=== PATIENT | male | born 1955 | race Caucasian/White ===

== ENCOUNTER 2016-08-22 19:00 | Outpatient (CLI) | payer OTHER ==
--- NOTE | 2016-08-23 07:02 | XRAY Report ---
EXAM: LUMBOSACRAL SPINE RADIOGRAPHY EXAM DATE: 08/22/2016 08:57 PM. CLINICAL HISTORY: Back pain COMPARISONS: None. TECHNIQUE: 3 views. FINDINGS: Alignment: Moderate levoscoliosis centered at L3. Bones: Five [id number] lumbar vertebral bodies are present. No fractures or bone lesions. Degenerative changes: Moderate to severe degenerative disk disease at L3-L4. Mild diffuse degenerativ e disk disease elsewhere. Advanced lower lumbar facet DJD. Soft Tissues: Normal. The visualized bowel gas pattern is normal. IMPRESSION: Moderate degenerative changes, worst at L3-L4 are accentuated by levoscoliosis. [facility] Referring Provider Line: [phone] SITE ID: [id number]
--- NOTE | 2016-08-23 09:39 | XRAY Report ---
EXAM: BILATERALLY SHOULDER RADIOGRAPHY EXAM DATE: 08/22/2016 08:57 PM. CLINICAL HISTORY: Bilateral shoulder pain, psoriatic arthritis. COMPARISON: None. TECHNIQUE: 3 views on each side. FINDINGS: There is moderate to severe cranial migration of the right humeral head with subchondral cy stic and sclerotic changes in the right humeral head and chronic fragmented appearance of the right a cromion with severely diminished acromiohumeral space. The right glenohumeral space demonstrates mild subchondral sclerotic reaction, and the right AC joint is within normal limits. The left glenohumeral space and the left AC joint are within normal limits. No acute fracture, bony erosive process or dislocation. The visualized chest is within normal limits. IMPRESSION: 1. Moderate to severe cranial migration of the right humeral head with chronic fragmented appearance of the right acromion and severe diminishment of the right acromiohumeral space, indicating chronic r ight rotator cuff impingement. 2. Negative left shoulder x-ray. [facility] Referring Provider Line: [phone] SITE ID: [id number]
== END 2016-08-22 19:01 | disposition home or self-care (01) ==
LOC: DI 19:00
PROVIDERS: ATTEND Physician Assistant Medical
DX: M51.36 Other intervertebral disc degeneration, lumbar region (principal); M47.896 Other spondylosis, lumbar region; M75.41 Impingement syndrome of right shoulder
CPT/HCPCS: 72100

== ENCOUNTER 2017-09-06 16:13 | Outpatient (CLI) | payer OTHER ==
--- NOTE | 2017-09-07 08:13 | XRAY Report ---
Procedure Date: 09/06/2017 Accession Number: [id number] / [id number] Procedure: XR - Chest 2 View X-Ray CPT Code: 49525 FULL RESULT: EXAM: Chest 2 View X-Ray DATE: 09/06/2017 4:48 PM CLINICAL HISTORY: COUGH, COPD COMPARISON: 06/30/2015 TECHNIQUE: 2 views. FINDINGS: Lungs/Pleura: The lungs remain hyperinflated, compatible with COPD. No focal consolidation, effusion, or pneumothorax. Mediastinum: Heart and mediastinal contours are unremarkable. Other: None. IMPRESSION: Stable COPD. No evidence of acute cardiopulmonary disease. [facility]
== END 2017-09-06 16:14 | disposition home or self-care (01) ==
LOC: DI 16:13
PROVIDERS: ATTEND Physician Assistant Medical
DX: J44.9 Chronic obstructive pulmonary disease, unspecified (principal)
CPT/HCPCS: 71046

== ENCOUNTER 2018-11-30 06:08 | Outpatient (CLI) | payer MEDICARE ==
--- NOTE | 2018-11-30 10:26 | XRAY Report ---
Reason: COPD Procedure Date: 11/30/2018 Accession Number: [id number] / [id number] Procedure: XR - Chest 2 View X-Ray CPT Code: 20140 FULL RESULT: EXAM: CHEST RADIOGRAPHY EXAM DATE: 11/30/2018 06:16 AM. CLINICAL HISTORY: COPD. Follow up COMPARISON: CHEST 2 VIEW 09/06/2017 4:35 PM. TECHNIQUE: 2 views. FINDINGS: Lungs/Pleura: No focal opacities evident. No pleural effusion. No pneumothorax. Normal volumes. Stable hyperinflation. Mediastinum: Heart size upper limits of normal and stable. Other: None. IMPRESSION: Stable hyperinflation. No acute lung processes detected. [facility]
== END 2018-11-30 06:09 | disposition home or self-care (01) ==
LOC: DI 06:08
PROVIDERS: ATTEND Internal Medicine
DX: J44.9 Chronic obstructive pulmonary disease, unspecified (principal)
CPT/HCPCS: 71046

== ENCOUNTER 2019-02-09 08:28 | Outpatient (CLI) | payer MEDICARE, OTHER | END 2019-02-09 08:29 | disposition home or self-care (01) | LOC: RT 08:28 | PROVIDERS: ATTEND Surgery | DX: Z01.810 Encounter for preprocedural cardiovascular examination (principal); K40.90 Unilateral inguinal hernia, without obstruction or gangrene, not specified as recurrent | CPT/HCPCS: 93005 ==

== ENCOUNTER 2019-02-17 08:22 | Day surgery (SDC) | payer MEDICARE, OTHER ==
[2019-02-17] MEDS ORDERED: LACTATED RINGERS 1,000 ML IV ONE ×2 (08:33→09:59)
[2019-02-17] MEDS ORDERED: ENOXAPARIN 30 MG/0.3 ML SYRINGE SUBQ ONE (08:43)
[2019-02-17] MEDS ORDERED: CEFAZOLIN SODIUM IN 0.9 % NACL 2 GM/100 ML BAG IV ONE (08:43)
[2019-02-17] MEDS ORDERED: BUPIVACAINE 0.5% PF 30 ML VIAL ONE (09:07)
--- NOTE | 2019-02-17 09:18 | ANESTHESIA ---
Pre-Anesthesia VS, & Labs - Diagnosis L inguinal hernia - Procedure L inguinal hernia repair Vital Signs: Temp Pulse Resp BP Pulse Ox 37.0 C 65 16 136/61 H 98 02/17/19 08:37 02/17/19 08:37 02/17/19 08:37 02/17/19 08:37 02/17/19 08:37 Height 5 ft 9 in Weight (kg) 73.6 kg Body Mass Index 21.5 - NPO >8 hours Home Medications and Allergies Home Medications: Ambulatory Orders ALPRAZolam [Alprazolam] 1 mg PO TID PRN 02/08/19 Budesonide/Formoterol Fumarate [Symbicort 160-4.5 Mcg Inhaler] 2 puffs IH BID 02/08/19 Ipratropium/Albuterol [Duoneb] 3 ml INH Q6H PRN 02/08/19 Naproxen Sodium [Aleve] 220 mg PO BID PRN 02/08/19 traMADol [Ultram] 1 - 2 tab PO DAILY PRN 02/08/19 Lisinopril 20 mg PO DAILY 05/09/13 Albuterol [Ventolin Hfa] 2 puffs INH Q4H PRN 07/05/14 ALPRAZolam [Alprazolam] 1 mg PO TID PRN 02/08/19 Budesonide/Formoterol Fumarate [Symbicort 160-4.5 Mcg Inhaler] 2 puffs IH BID 02/08/19 Ipratropium/Albuterol [Duoneb] 3 ml INH Q6H PRN 02/08/19 Naproxen Sodium [Aleve] 220 mg PO BID PRN 02/08/19 traMADol [Ultram] 1 - 2 tab PO DAILY PRN 02/08/19 Allergies/Adverse Reactions: Allergies Allergy/AdvReac Type Severity Reaction Status Date / Time No Known Drug Allergies Allergy Verified 06/29/15 23:33 Anes History & Medical History - Anesthetic History Anesthesia Complications: reports: No previous complications Family history of Anesthesia Complications: Denies Family history of Malignant Hyperthermia: Denies - Medical History Cardiovascular: reports: Hypertension Pulmonary: reports: Asthma, COPD, Pneumonia, Other (recent Abx for URI that delayed original surgery for 02/10/19. lungs clear t/o, cough no longer productive) Gastrointestinal: reports: None Urinary: reports: None Musculoskeletal: reports: Osteoarthritis Endocrine/Autoimmune: reports: None Skin: reports: Eczema, Other Smoking Status: Never smoker Psychosocial: reports: No issues indicated - Surgical History Dermatologic: Other Exam General: Alert, Oriented x3, Cooperative Dental: WNL Mouth Openin Fingerbreadth Neck Mobility: Normal Mallampati classification: II Thyromental Distance: 4-6 cm Respiratory: Lungs clear, Normal breath sounds, No respiratory distress Cardiovascular: Regular rate Neurological: Normal speech Mental/Cognitive Status: Alert/Oriented X3, Normal for patient Cognitive Status: Within normal limits Plan Anesthesia Type: General Consent for Procedure(s) Verified and Reviewed: Yes Code Status: Attempt Resuscitation ASA classification: 2-Mild systemic disease Is this case an emergency?: No
[2019-02-17] MEDS ORDERED: ceFAZolin 1 GM VIAL ONE (09:52)
[2019-02-17] MEDS ORDERED: BUPIVACAINE 0.5% PF 10 ML VIAL IM ONE ×2 (09:57)
--- NOTE | 2019-02-17 11:14 | IMMEDIATE POSTOPERATIVE NOTE ---
Immediate Postoperative Note - Procedure Note Procedure Date: 02/17/19 Pre-Op Diagnosis: LIH Procedure: 1. LIH repair w/implantation of mesh plug and patch 2. Exc cord lipoma Post-Op Diagnosis: Same Primary Surgeon: Ale Golf Ball Inspector: Frank Anesthesia Type: General ET tube, Local Findings: LIH Indirect w/hernia sac Complications: No complications Estimated Blood Loss (in cc): 3
[2019-02-17] MEDS ORDERED: ONDANSETRON 4 MG/2 ML VIAL IVP PRN (11:15)
[2019-02-17] MEDS ORDERED: ACETAMINOPHEN 325 MG TABLET PO PRN (11:15)
[2019-02-17] MEDS ORDERED: oxyCODONE 5 MG TABLET PO PRN (11:15)
[2019-02-17] MEDS ORDERED: IBUPROFEN 600 MG TABLET PO PRN (11:15)
[2019-02-17] MEDS: HYDROmorphone 1 MG/ML CARPUJECT ONE ×2 (11:29→11:40)
[2019-02-17] MEDS ORDERED: ACETAMINOPHEN 325 MG TABLET PO ONE (12:02)
[2019-02-17] MEDS ORDERED: IBUPROFEN 600 MG TABLET PO ONE (12:02)
[2019-02-17] MEDS ORDERED: oxyCODONE 5 MG TABLET ONE (12:03)
--- NOTE | 2019-02-17 12:10 | OPERATIVE REPORT ---
DATE OF SERVICE: 02/17/2019 Physician: Shady Aguilera DO PREOPERATIVE DIAGNOSIS: Left inguinal hernia. POSTOPERATIVE DIAGNOSIS: Left indirect inguinal hernia with hernia sac and cord lipoma. PROCEDURE PERFORMED: 1. Left inguinal hernia repair with implantation of mesh plug and patch. 2. Excision of left inguinal hernia cord lipoma. SURGEON: Shady Aguilera DO. HEALTH CARE LIAISON: Dr. Marie. [facility] [employer] [facility] DIRECTOR: Trey Rojas CRNA. TYPE OF ANESTHESIA: General endotracheal tube with local assist. ESTIMATED BLOOD LOSS: 3 mL FINDINGS: The patient had a large cord lipoma requiring dissection and excision. The hernia sac was also moderately large. COMPLICATIONS: None. CONDITION: Stable upon transport to recovery. HISTORY: The patient is a 63-year-old white male with a left inguinal hernia for some time that is u ncomfortable for him. There is no history of incarceration or strangulation of this hernia. DESCRIPTION OF PROCEDURE: The patient was taken to the operating room and under the above-mentioned anesthetic, prepped and draped in the usual sterile manner. He was given a local anesthetic followin g induction of general anesthetic. An incision made between the left anterior superior iliac spine a nd the left pubic tubercle and carried down through the skin and subcutaneous tissues until the exter nal oblique aponeurosis was identified. The aponeurosis was then incised through the external ring a nd the underlying ilioinguinal nerve identified, dissected and sacrificed. Both ends were electrocoa gulated. The underlying cremaster muscle was dissected and mobilized and likewise excised. Subseque ntly, the spermatic cord was elevated and encircled with a Adele drain. The large cord lipoma was carefully dissected down to the internal ring where it was clamped, divided, and suture ligated. Sub sequently, the hernia sac was identified and carefully dissected down to the internal ring, where it was then twisted down to its base, suture ligated with 2-0 silk and the excess sac trimmed. Subseque ntly, the sac was then placed into the internal ring. Following that, a mesh plug that had been soak ing in Ancef solution was placed to further secure the remnant of the cord lipoma and hernia sac in t he internal ring. A keyhole onlay mesh was then implanted with the tip at José Miguel's ligament, and the n laterally to the shelving portion of Poupart's ligament, and the medial edge of the mesh to the int ernal oblique fascia, all with inverted interrupted horizontal mattress sutures of 2-0 Prolene. Even tually, the cord was placed within the keyhole and the ends of the mesh tacked together and then sutu red to the floor of the inguinal canal. Following a reported correct sponge and needle count, the pa tient was prepared for closure. The external inguinal aponeurosis was then reapproximated with a run rakan 2-0 PDS and Latonia's fascia was approximated with inverted interrupted 3-0 Vicryl and skin jonah ns approximated with a running 4-0 Vicryl. Dermabond was applied over that. The patient transported to recovery in stable condition. TD: 02/17/2019 11:24
[2019-02-17 12:50] VITALS: BP 131/67
== END 2019-02-17 08:23 | disposition home or self-care (01) ==
LOC: SDS 08:22
PROVIDERS: ATTEND Surgery
PROC: 0YU60JZ Supplement Left Inguinal Region with Synthetic Substitute, Open Approach (ICD-10-PCS; principal; 2019-02-17 09:30)
DX: K40.90 Unilateral inguinal hernia, without obstruction or gangrene, not specified as recurrent (principal); D17.6 Benign lipomatous neoplasm of spermatic cord; I10 Essential (primary) hypertension; J44.9 Chronic obstructive pulmonary disease, unspecified; Z79.899 Other long term (current) drug therapy; Z79.51 Long term (current) use of inhaled steroids; Z87.891 Personal history of nicotine dependence
CPT/HCPCS: 49505; A9270; C1781; J0690; J1170; J1650; J7120

== ENCOUNTER 2019-02-19 09:40 | Emergency (ER) | payer MEDICARE, OTHER ==
[2019-02-19 09:49] VITALS: BP 149/86
[2019-02-19] MEDS ORDERED: DEXAMETHASONE 10 MG/ML VIAL PO STA (10:29)
[2019-02-19] MEDS ORDERED: CHERRY SYRUP 10 ML UDC PO ONE (10:29)
--- NOTE | 2019-02-19 10:31 | ED Physician Documentation ---
PD HPI URI - Stated complaint Stated Complaint: L EYE SWELLING - Chief complaint Chief Complaint: Heent - History obtained from History obtained from: Patient - History of Present Illness Timing - onset: How many days ago (3) Timing duration: Days (3) Timing details: Gradual onset, Still present Associated symptoms: Nasal congestion, Rhinorrhea, Swollen nodes, Productive cough, Dyspnea, Other (swelling to the left side of the face) Improves by: MDI/nebulizer Worsened by: Activity Similar symptoms before: Diagnosis (COPD and bronchitis) Recently seen: Surgery - Additional information Additional information: 63-year-old male with a history of COPD had surgery on his left inguinal hernia 3 days ago and he has developed a cough and congestion and this morning he has swelling under his left eye and over his left cheek. He is developed some difficulty with breathing and feels that he needs some prednisone. Review of Systems Constitutional: denies: Fever Eyes: reports: Irritation. denies: Decreased vision Ears: denies: Ear pain Nose: reports: Rhinorrhea / runny nose, Congestion Throat: denies: Sore throat Cardiac: denies: Chest pain / pressure, Palpitations Respiratory: reports: Dyspnea, Cough, Wheezing PD PAST MEDICAL HISTORY - Past Medical History Cardiovascular: Hypertension Respiratory: Asthma, COPD, Pneumonia, Other Endocrine/Autoimmune: None GI: None : None HEENT: Chronic vision loss Psych: Anxiety Musculoskeletal: Osteoarthritis Derm: Eczema, Other - Past Surgical History Past Surgical History: No Derm: Other - Present Medications Home Medications: Ambulatory Orders Medication Instructions Recorded Confirmed Lisinopril 20 mg PO DAILY 05/09/13 02/17/19 Albuterol [Ventolin Hfa] 2 puffs INH Q4H PRN 07/05/14 02/08/19 ALPRAZolam [Alprazolam] 1 mg PO TID PRN 02/08/19 02/17/19 Budesonide/Formoterol Fumarate 2 puffs IH BID 02/08/19 02/17/19 [Symbicort 160-4.5 Mcg Inhaler] Ipratropium/Albuterol [Duoneb] 3 ml INH Q6H PRN 02/08/19 02/08/19 Naproxen Sodium [Aleve] 220 mg PO BID PRN 02/08/19 02/17/19 traMADol [Ultram] 1 - 2 tab PO DAILY PRN 02/08/19 02/17/19 Amox/Clav 875/125 [Augmentin] 1 each PO Q12H #20 tablet 02/19/19 Oxycodone HCl/Acetaminophen 02/19/19 [Oxycodone-Acetaminophen 5-325] predniSONE [Deltasone] 10 mg PO ONCE #26 tablet 02/19/19 - Allergies Allergies/Adverse Reactions: Allergies Allergy/AdvReac Type Severity Reaction Status Date / Time No Known Drug Allergies Allergy Verified 02/19/19 09:49 - Social History Does the pt smoke?: No Smoking Status: Never smoker Does the pt drink ETOH?: Yes Does the pt have substance abuse?: No - Immunizations Immunizations are current?: Yes - POLST Patient has POLST: No PD ED PE NORMAL - Vitals Vital signs reviewed: Yes (hypertensive) - General General: Alert and oriented X 3, No acute distress, Well developed/nourished - HEENT HEENT: Atraumatic, PERRL, EOMI, Pharynx benign, Other (Both TM's are inflamed the left is much worse than the right. There is mild inflamation under the left eye over the cheek without significant erythema. ) - Neck Neck: Supple, no meningeal sign, No bony TTP - Cardiac Cardiac: RRR, No murmur - Respiratory Respiratory: No respiratory distress, Other (wheezes and rhonchi scattered ) - Abdomen Abdomen: Soft, Non tender, Other (There is a healing surgical site the left inguinal area and this appears to be healing well without significant inflamation. There is ecchymosis to the upper thigh. ) - Back Back: No CVA TTP, No spinal TTP - Derm Derm: Normal color, Warm and dry, No rash - Extremities Extremities: No deformity, No edema - Neuro Neuro: Alert and oriented X 3, punch operator 2-12 intact, No motor deficit, No sensory deficit, Normal speech Eye Opening: Spontaneous Motor: Obeys Commands Verbal: Oriented GCS Score: 15 - Psych Psych: Normal mood, Normal affect Results - Vitals Vitals: Vital Signs - 24 hr 02/19/19 09:46 Temperature 36.9 C Heart Rate 93 Respiratory 16 Rate Blood Pressure 149/86 H O2 Saturation 97 Oxygen O2 Source Room air PD MEDICAL DECISION MAKING - ED course Complexity details: reviewed old records, reviewed results, re-evaluated patient, considered differential, d/w patient ED course: 63-year-old male with a history of COPD has developed a cough and congestion has otitis on examination. He will need a course of prednisone and antibiotic. He is complaining of some swelling under his left eye and over his left cheek and I suspect this may be part of a sinus infection. The swelling is now reduced from what it was at its height. He is administered dexamethasone 10 mg orally here in the emergency department and he refuses DuoNeb treatment stating he has this at home and would like to go home. We will start him on some Augmentin as well.His inguinal hernia appears to be healing well without signs of inflammation Departure - Departure Disposition: Home, Self Care Clinical Impression: Asthma exacerbation Qualifiers: Asthma severity: moderate Asthma persistence: persistent Qualified Code(s): J45.41 - Moderate persistent asthma with (acute) exacerbation Otitis media Qualifiers: Otitis media type: suppurative Chronicity: acute Laterality: bilateral Recurrence: non-recurrent Spontaneous tympanic membrane rupture: without spontaneous rupture Qualified Code(s): H66.003 - Acute suppurative otitis media without spontaneous rupture of ear drum, bilateral Condition: Stable Instructions: ED Otitis Media Acute Adult, ED Reactive Airway Disease Follow-Up: Cande Calderon MD [Primary Care Provider] - Prescriptions: Amox/Clav 875/125 [Augmentin] 1 each PO Q12H #20 tablet predniSONE [Deltasone] 10 mg PO ONCE #26 tablet
[2019-02-19] MEDS ORDERED: AMOX/CLAV 875 MG/125 MG TABLET PO STA (10:49)
== END 2019-02-19 11:02 | disposition home or self-care (01) ==
LOC: ED 09:40
DX: J45.41 Moderate persistent asthma with (acute) exacerbation (principal); J44.9 Chronic obstructive pulmonary disease, unspecified; H66.003 Acute suppurative otitis media without spontaneous rupture of ear drum, bilateral; I10 Essential (primary) hypertension; Z98.890 Other specified postprocedural states
CPT/HCPCS: 99282; 99284; A9270

== ENCOUNTER 2020-05-03 17:45 | Emergency (ER) | payer MEDICARE ==
[2020-05-03] MEDS ORDERED: predniSONE 20 MG TABLET PO STA (18:12)
[2020-05-03] MEDS ORDERED: AMOX/CLAV 875 MG/125 MG TABLET PO STA (18:12)
--- NOTE | 2020-05-03 18:16 | ED Physician Documentation ---
PD HPI DYSPNEA - Stated complaint Stated Complaint: SOA - Chief complaint Chief Complaint: Resp - History obtained from History obtained from: Patient - Additional information Additional information: 64-year-old gentleman with COPD presents having been mildly congested for the last week and a half, but more shortness of breath today with moderate cough. He denies fevers. He used his nebulizer prior to arrival with some help, then called his physician expecting a prescription for steroids, however his usual physician is out of town and the on-call physician told him to come to the emergency department. He denies chest pain, pedal edema. He also took 3 ephedrine and 3 Xanax prior to arrival feeling panicky but also short of breath. Review of Systems Constitutional: denies: Fever, Chills Ears: denies: Loss of hearing, Ear pain Nose: reports: Rhinorrhea / runny nose, Congestion Throat: denies: Sore throat Cardiac: denies: Chest pain / pressure, Palpitations Respiratory: reports: Dyspnea PD PAST MEDICAL HISTORY - Past Medical History Cardiovascular: Hypertension Respiratory: Asthma, COPD, Pneumonia, Other Endocrine/Autoimmune: None GI: None : None HEENT: Chronic vision loss Psych: Anxiety Musculoskeletal: Osteoarthritis Derm: Eczema, Other - Past Surgical History Past Surgical History: No Derm: Other - Present Medications Home Medications: Ambulatory Orders Medication Instructions Recorded Confirmed Lisinopril 20 mg PO DAILY 05/09/13 02/17/19 Albuterol [Ventolin Hfa] 2 puffs INH Q4H PRN 07/05/14 02/08/19 ALPRAZolam [Alprazolam] 1 mg PO TID PRN 02/08/19 02/17/19 Budesonide/Formoterol Fumarate 2 puffs IH BID 02/08/19 02/17/19 [Symbicort 160-4.5 Mcg Inhaler] Ipratropium/Albuterol [Duoneb] 3 ml INH Q6H PRN 02/08/19 02/08/19 Naproxen Sodium [Aleve] 220 mg PO BID PRN 02/08/19 02/17/19 traMADol [Ultram] 1 - 2 tab PO DAILY PRN 02/08/19 02/17/19 Amox/Clav 875/125 [Augmentin] 1 each PO Q12H #20 tablet 02/19/19 Oxycodone HCl/Acetaminophen 02/19/19 [Oxycodone-Acetaminophen 5-325] predniSONE [Deltasone] 10 mg PO ONCE #26 tablet 02/19/19 Amox/Clav 875/125 [Augmentin] 1 each PO Q12H #20 tab 05/03/20 predniSONE [Deltasone] 20 mg PO [id number] #21 tab 05/03/20 - Allergies Allergies/Adverse Reactions: Allergies Allergy/AdvReac Type Severity Reaction Status Date / Time No Known Drug Allergies Allergy Verified 05/03/20 17:51 - Social History Does the pt smoke?: No Smoking Status: Never smoker Does the pt drink ETOH?: Yes Does the pt have substance abuse?: No - Immunizations Immunizations are current?: Yes - POLST Patient has POLST: No PD ED PE NORMAL - Vitals Vital signs reviewed: Yes - General General: Alert and oriented X 3, Other (He is hyperanimated and talking quite fast, there is no evidence of respiratory distress. He is tachycardic.) - Cardiac Cardiac: Other (tachyCardiac but regular without murmur) - Respiratory Respiratory: Other (Moderately diminished, mild expiratory wheezes.) - Abdomen Abdomen: Non tender - Back Back: No CVA TTP, No spinal TTP - Derm Derm: Normal color, Warm and dry, No rash - Extremities Extremities: No edema, No calf tenderness / cord - Neuro Neuro: Alert and oriented X 3, Normal speech Results - Vitals Vitals: Vital Signs - 24 hr 05/03/20 05/03/20 17:48 18:20 Temperature 36.4 C L Heart Rate 123 H 119 H Respiratory 26 H 18 Rate Blood Pressure 144/101 H 136/90 H O2 Saturation 92 98 Oxygen O2 Source Room air PD MEDICAL DECISION MAKING - ED course ED course: 64-year-old gentleman COPD presents with shortness of breath. His tachycardia is significant but given that he is hyper animated and took 3 ephedrine prior to arrival suspect it was from that. That said because of the tachycardia I recommended labs to screen for ACS and PE which he refuses. He just wants a prescription for antibiotics and steroids. Departure - Departure Disposition: Home, Self Care Clinical Impression: Moderate COPD (chronic obstructive pulmonary disease) Condition: Good Record reviewed to determine appropriate education?: Yes Instructions: COPD Dc Prescriptions: Amox/Clav 875/125 [Augmentin] 1 each PO Q12H #20 tab predniSONE [Deltasone] 20 mg PO [id number] #21 tab Comments: Call your doctor to arrange a follow-up appointment, make the next available appointment. In the interim, return anytime if worse or if new symptoms develop. Discharge Date/Time: 05/03/20 18:30
[2020-05-03 18:30] VITALS: BP 136/90
== END 2020-05-03 18:30 | disposition home or self-care (01) ==
LOC: ED 17:45
DX: J44.9 Chronic obstructive pulmonary disease, unspecified (principal); R00.0 Tachycardia, unspecified
CPT/HCPCS: 99282; 99284; A9270; J7512

== ENCOUNTER 2020-09-16 10:21 | Outpatient (CLI) | payer MEDICARE ==
[2020-09-23 09:21] VITALS: BP 140/70
--- NOTE | 2020-09-23 09:21 | SLEEP CARE CONSULTATION ---
Information from patient questionnaire entered by Seema Bowers. I have reviewed and concur with the information entered by Seema Bowers. This document represents the service I personally performed and the decisions made by me, Lalit Spence MD, [facility]. History of Present Illness Service Date and Time: 09/16/2020 1021 Reason for Visit: New patient Chief Complaint: reports: Unrefreshed sleep, Snoring, Observed pauses in breathing Date of Onset: unsure Usual bedtime: varies Time it takes to fall asleep: not long Snores at night: Yes Observed to quit breathing while asleep: Yes Sleeps alone due to snoring: Yes (sometimes) Number of times waking at night: unsure Reasons for waking at night: reports: Bathroom Toss, Turn, or Twitch while sleeping: No Recalls having dreams: Yes Usually gets out of bed at: varies Feels refreshed in the morning: No Morning headache: No Sleepy or fatigued during the day: Yes (sometimes) Ever fallen asleep while driving: No Takes day naps: No Dreams during day naps: No Prior sleep studies: No Additional HPI information: I had the pleasure of seeing Mr. Rivera today regarding the possibility of him having a sleep disorder. As you know, he is a 65 year old gentleman who complains of loud snore and his has seen him quit breathing. He occasionally takes Xanax which makes his snores worse. He feels tired all day. However, his [place] Sleepiness Scale score is only 1 out of 24. He does not wake up refreshed in the morning. No morning headaches. He has hypertension. - Parasomnia Symptoms Ever been unable to move upon waking from sleep: No Walks in sleep: No Talks in sleep: No Ever acted out dreams in sleep: No Ever felt weak in the knees when startled or emotional: No Bothered by creepy, crawly, restless sensations in legs: No Problems with memory or concentration: No Subjective Initial [place] Sleepiness Scale score: 1 (in 2020) Past Medical History Past Medical History: reports: Hypertension, Anxiety, Asthma Social History The patient's occupation is a Retired. Patient is and lives in [place]. Have you smoked in the past 12 months: No Alcohol use: No Caffeine use: Yes Caffeine amount and frequency: 3 cups of coffee Family History Family history of sleep disordered breathing: Yes Family Hx Sleep Apnea: Father: Snoring Allergies and Home Medications Drug allergies reviewed: Yes Home medication list reviewed: Yes Review of Systems Cardiovascular: reports: high blood pressure (controlled with Lisinopril) Respiratory: denies: shortness of breath, wheeze, sputum production, chronic cough, other Gastrointestinal: denies: heartburn, difficulty swallowing, nausea, vomitting, diarrhea, abdominal pain, other Urinary: denies: incontinence, frequency, urgency, impotence, other Neurological: denies: headaches, seizure, head trauma, disorientation, speech dysfunction, gait or balance problems, fainting or unconsciousness, other Ear/Nose/Throat: denies: nasal congestion, sinus problems, nose bleeds, dry mouth/throat, hoarseness, injury to nose, tonsillectomy, wisdom teeth removed, other Endocrine: denies: thyroid disease, history of goiter, sluggishness, too hot or cold, excessive thirst, increased appetite, increased urination, unexplained weakness, other Musculoskeletal: denies: joint pain, neck pain, back pain, joint swelling, muscle pain or cramping, mobility problems, other Immunologic: denies: sneezing, rash, itching, allergies to food or environment, other Physical Exam Vital signs obtained and entered by: Dr. Spence Blood Pressure: 140/70 Cuff size: regular Heart Rate: 90 O2 Saturation: 97 Height: 5 ft 11 in Weight: 165 lb Body Mass Index: 23.0 BMI Classification: Healthy weight Mood/affect: normal HEENT: No craniofacial malformation Nostrils: patent to airflow Turbinates: normal Septum: midline Mouth and throat: narrow oropharynx Soft palate: long Hard palate: normal Uvula: normal Uvula visualization: 50% Mallampati Class II Tongue: normal in size Tonsils: small Chin and jaw: normal size and position Neck: normal w/o lymphadenopathy or thyromegaly Heart: regular rate and rhythm Lungs: clear bilaterally Extremities: no edema or clubbing Impression and Plan IMPRESSION: 1. Obstructive Sleep Apnea-Hypopnea Syndrome, as suggested by history of loud and irregular snoring, observed cessation of breath while asleep, unrefreshed sleep, persistent fatigue. Narrow oropharynx is a common predisposing factor for obstructive sleep apnea-hypopnea syndrome. Untreated obstructive sleep apnea can also cause hypertension. I recommend proceeding to a sleep study. The patient prefers a home sleep apnea test (HSAT) but being on Medicare, he may need to go with an in-laboratory polysomnography. Plan: 1. Schedule an in-laboratory polysomnography or a home sleep apnea test (HSAT). 2. Avoid long distance driving or when feeling sleepy. 3. Avoid alcohol, sedative and muscle relaxant around bedtime. 4. Return for follow up after the sleep study. Visit Type: In Office Time Spent with Patient (minutes): 15 Provider Statement: I spent 100% of the Face to Face Visit with the patient with greater than 50% spent counseling the patient and coordination of care.
== END 2020-09-16 10:22 | disposition home or self-care (01) ==
LOC: SC 10:21
PROVIDERS: ATTEND Internal Medicine Pulmonary Disease
DX: R06.81 Apnea, not elsewhere classified (principal); R53.83 Other fatigue; G47.8 Other sleep disorders; R06.83 Snoring
CPT/HCPCS: 99202; G0463; 99212

== ENCOUNTER 2020-09-23 09:57 | Outpatient (CLI) | payer MEDICARE | END 2020-09-23 09:58 | disposition home or self-care (01) | LOC: SC 09:57 | PROVIDERS: ATTEND Internal Medicine Pulmonary Disease | DX: G47.33 Obstructive sleep apnea (adult) (pediatric) (principal); R09.02 Hypoxemia | CPT/HCPCS: G0399 ×2; 95806 ==

== ENCOUNTER 2020-10-14 10:41 | Outpatient (CLI) | payer MEDICARE ==
--- NOTE | 2020-10-14 11:10 | SLEEP CARE CONSULTATION ---
Information from patient questionnaire entered by Seema Bowers. I have reviewed and concur with the information entered by Seema Bowers. This document represents the service I personally performed and the decisions made by me, Lalit Spence MD, [facility]. History of Present Illness Service Date and Time: 10/14/2020 1041 Initial [place] Sleepiness Scale score: 1 (in 2020) Current [place] Sleepiness Scale score: 0 Additional HPI information: HPI: Mr. Rivera returned for follow up of the sleep study he had on 09/23/2020. The test showed moderate obstructive sleep apnea-hypopnea with an AHI of 21.1 and ngoc oxygen saturation of 73%. Baseline oxygen saturation was normal at 93%. Heart rate during sleep was within normal limits. The patient was informed of these findings. I explained to him the pathophysiology behind obstructive sleep apnea. We then spent quite a bit of time discussing different treatment options. For mild obstructive sleep apnea, surgery and oral appliance are alternatives to nasal CPAP therapy but in moderate or severe cases, nasal CPAP is the most effective and reliable treatment. Weight loss in an obese individual is strongly recommended. After some discussion, he opted to go with the nasal CPAP therapy. I explained to him how CPAP machine works and what to expect when using the machine. He is encouraged to use CPAP every night especially in the first 2 to 3 nights in order to get used to it. He should call his CPAP supplier or me to discuss any mechanical problem that may occur. If he snores or feels like he is not getting enough air from the machine, he should notify me and I will increase the pressure. Sleep Study - Results Type of Sleep Study: Home sleep study Prior sleep studies: No Allergies and Home Medications Drug allergies reviewed: Yes Home medication list reviewed: Yes Review of Systems Review of systems same as previous: Yes Physical Exam Height: 5 ft 11 in Weight: 165 lb Body Mass Index: 23.0 BMI Classification: Healthy weight Impression and Plan IMPRESSION: 1. Obstructive Sleep Apnea-Hypopnea Syndrome, moderate, associated with moderate hypoxemia. Most likely, this is the cause of the patients symptoms of unrefreshed sleep, and excessive daytime sleepiness. As mentioned above, the patient will be started on autoCPAP set between 5 and 15 cmH2O. Depending on his response and compliance he may be brought back for an overnight CPAP titration study. PLAN: 1. Prescription made for an autoCPAP, heated humidifier, and related supplies. 2. Avoid alcohol consumption near bedtime. 3. Return in one month for follow up. I will assess his response and compliance at that time. Prescriptions: Auto CPAP Follow up with Sleep Care in: 1-2 months Visit Type: In Office Time Spent with Patient (minutes): 15 Provider Statement: I spent 100% of the Face to Face Visit with the patient with greater than 50% spent counseling the patient and coordination of care.
== END 2020-10-14 10:42 | disposition home or self-care (01) ==
LOC: SC 10:41
PROVIDERS: ATTEND Internal Medicine Pulmonary Disease
DX: G47.33 Obstructive sleep apnea (adult) (pediatric) (principal)
CPT/HCPCS: 99212; G0463

== ENCOUNTER 2021-01-06 10:38 | Outpatient (CLI) | payer MEDICARE ==
--- NOTE | 2021-01-06 12:44 | SLEEP CARE CONSULTATION ---
Information from patient questionnaire entered by Raquel Hoang. I have reviewed and concur with the information entered by Raquel Hoang. This document represents the service I personally performed and the decisions made by me, Lalit Spence MD, [facility]. History of Present Illness Service Date and Time: 01/06/2021 1038 Previous diagnosis: Moderate, Obstructive Sleep Apnea-Hypopnea Syndrome AHI: 21.1 Reason for follow up: first compliance Equipment type: CPAP Equipment obtained from: [employer] Prior sleep studies: Yes Year and Where: 09/2020 [facility] Type of Sleep Study: Home sleep study HPI additional information: Mr. Rivera was diagnosed to have moderate obstructive sleep apnea-hypopnea syndrome and returns today for follow up of CPAP therapy. The patient purchased the device from [employer] and was fitted with a Respironics DreamWear full face mask. He uses the device nightly and all through the night. The compliance report shows that he uses the device 49 nights out of the past 49 nights, averaging 8.3 hours a night. He complains of no particular problem with the device such as soreness on the face, dry nose, epistaxis, nasal congestion or headache. He thinks that the pressure of 5 - 15 cmH2O is comfortable. On the CPAP therapy he denies feeling sleepy. His notices no snore at all. [place] Sleepiness Scale score is 0. The average residual AHI is 6.9; and average air leak is 10 L/minute. The 90th percentile pressure is 12.9 cmH2O. Sleep Study - Results Type of Sleep Study: Home sleep study Prior sleep studies: No CPAP Compliance Data - Data Reviewed with Patient Average duration of nightly device use: 8 hours 20 minutes Compliance rate %: 100 Current pressure setting (cmH2O): 5-15 Average residual AHI: 7.6 Central apnea: .2 Obstructive apnea: 4.2 Hypopnea: 1 Subjective Initial [place] Sleepiness Scale score: 1 (in 2020) Current [place] Sleepiness Scale score: 0 Allergies and Home Medications Drug allergies reviewed: Yes Home medication list reviewed: Yes Review of Systems Review of systems same as previous: Yes Physical Exam Height: 5 ft 11 in Weight: 165 lb Body Mass Index: 23.0 BMI Classification: Healthy weight Impression and Plan IMPRESSION: 1. Obstructive Sleep Apnea-Hypopnea Syndrome, moderate, with the patient continuing to do well on nasal CPAP therapy. He has excellent complianc e and has no symptoms related to the sleep-disordered breathing. The current pressure appears slightly ineffective but comfortable. Overall, he is very satisfied with treatment and plans to continue with it long-term. I will raise the pressure slightly to 8 15 cm. PLAN: 1. AutoCPAP raised to 8 - 15 cm H2O. 2. Try Respironics DreamWear nasal cushion mask 3. Return in 11 days for another compliance download to show the required 60- day usage. 4. Return for follow up in a year or earlier if there is any problem. Visit Type: In Office Time Spent with Patient (minutes): 15 Provider Statement: I spent 100% of the Face to Face Visit with the patient with greater than 50% spent counseling the patient and coordination of care.
== END 2021-01-06 10:39 | disposition home or self-care (01) ==
LOC: SC 10:38
PROVIDERS: ATTEND Internal Medicine Pulmonary Disease
DX: G47.33 Obstructive sleep apnea (adult) (pediatric) (principal)
CPT/HCPCS: 99212; G0463

== ENCOUNTER 2021-01-18 20:15 | Emergency (ER) | payer MEDICARE ==
[2021-01-18 20:29] VITALS: BP 167/84
--- NOTE | 2021-01-18 21:10 | ED Physician Documentation ---
History of Present Illness - Stated complaint Stated Complaint: ASTHMA ISSUES, SORE THROAT,COUGH - Chief complaint Chief Complaint: Resp - History obtained from History obtained from: Patient - Additonal information Additional information: 65-year-old man with history of COPD, hypertension, presents with shortness of breath progressive over the past couple of days associated with cold symptoms, dry cough, and expiratory wheezing, improved with home breathing treatments. Patient states that he called Dr Calderon who started him on prednisone today as well as Augmentin. He is going to follow-up with him on Wednesday. Denies fever at home. Denies hemoptysis, leg swelling, nausea, chest pain. Review of Systems Ten Systems: 10 systems reviewed and negative Constitutional: denies: Fever Throat: reports: Sore throat Cardiac: denies: Chest pain / pressure Respiratory: reports: Dyspnea, Cough PD PAST MEDICAL HISTORY - Past Medical History Cardiovascular: Hypertension Respiratory: Asthma, COPD, Pneumonia, Other Endocrine/Autoimmune: None GI: None : None HEENT: Chronic vision loss Psych: Anxiety Musculoskeletal: Osteoarthritis Derm: Eczema, Other - Past Surgical History Past Surgical History: No Derm: Other - Present Medications Home Medications: Ambulatory Orders Medication Instructions Recorded Confirmed Lisinopril 10 mg PO BID 05/09/13 01/18/21 Albuterol [Ventolin Hfa] 2 puffs INH Q4H PRN 07/05/14 01/18/21 ALPRAZolam [Alprazolam] 1 mg PO TID PRN 02/08/19 01/18/21 Budesonide/Formoterol Fumarate 2 puffs IH BID 02/08/19 02/17/19 [Symbicort 160-4.5 Mcg Inhaler] Ipratropium/Albuterol [Duoneb] 3 ml INH Q6H PRN 02/08/19 01/18/21 Naproxen Sodium [Aleve] 220 mg PO BID PRN 02/08/19 02/17/19 traMADol [Ultram] 0.5 tab PO DAILY PRN 02/08/19 01/18/21 Amox/Clav 875/125 [Augmentin] 1 each PO Q8HR 01/18/21 predniSONE [Deltasone] 40 mg PO QID 01/18/21 01/18/21 - Allergies Allergies/Adverse Reactions: Allergies Allergy/AdvReac Type Severity Reaction Status Date / Time No Known Drug Allergies Allergy Verified 01/18/21 20:23 - Social History Does the pt smoke?: No Smoking Status: Never smoker Does the pt drink ETOH?: Yes Does the pt have substance abuse?: No - Immunizations Immunizations are current?: Yes - POLST Patient has POLST: No PD ED PE NORMAL - Vitals Vital signs reviewed: Yes - General General: Alert and oriented X 3, No acute distress, Well developed/nourished - HEENT HEENT: Atraumatic, PERRL, EOMI - Neck Neck: Supple, no meningeal sign - Cardiac Cardiac: RRR - Respiratory Respiratory: No respiratory distress, Clear bilaterally - Abdomen Abdomen: Non tender, Non distended - Derm Derm: Normal color, Warm and dry - Extremities Extremities: No deformity, No edema - Neuro Neuro: Alert and oriented X 3 - Psych Psych: Normal mood, Normal affect Results - Vitals Vitals: Vital Signs - 24 hr 01/18/21 20:24 Temperature 36.7 C Heart Rate 97 Respiratory 24 Rate Blood Pressure 167/84 H O2 Saturation 94 Oxygen O2 Source Room air PD MEDICAL DECISION MAKING - ED course ED course: Patient refused bloodwork but consented to CXR. I discussed with him that he should take his antibiotics and steroids as prescribed and follow-up with his primary doctor on Wednesday. Return precautions discussed. Departure - Departure Disposition: 01 Home, Self Care Clinical Impression: COPD (chronic obstructive pulmonary disease), Shortness of breath, Viral upper respiratory illness Condition: Stable Instructions: ED Viral Syndrome Follow-Up: Cande Calderon MD [Primary Care Provider] - Comments: You are seen in the emergency department for a viral syndrome and your COPD. I did do labs with a white since your follow-up with Dr. Zabala showing decline vitals we will have the wound get lab work on Wednesday. Your chest x-ray showed viral pattern congestion. You should take your antibiotics and steroids as prescribed until you follow-up with your doctor. Return to the emergency department if you have any new or worsening symptoms or other concerns. Discharge Date/Time: 01/18/21 22:35
--- NOTE | 2021-01-18 21:23 | XRAY Report ---
PROCEDURE: Chest 1 View X-Ray INDICATIONS: Chest Pain TECHNIQUE: One view of the chest was acquired. COMPARISON: 10/17/2019 FINDINGS: Surgical changes and devices: None. Lungs and pleura: There is thickening of the interstitial markings bilaterally and minor prominence o f the central vasculature. No pleural effusions or pneumothorax. Mediastinum: Mediastinal contours appear normal. The heart has moderately increased in size, possibl y accentuated by technique. Bones and chest wall: No suspicious bony lesions. Severe degenerative changes in the right shoulder stemming from chronic right rotator cuff tear. Overlying soft tissues appear unremarkable. IMPRESSION: 1. New cardiomegaly. 2. Mild central vascular and interstitial congestion. Correlate with BNP. 3. Interstitial thickening may also be seen in viral pneumonia. Correlate clinically. Reviewed by: Criss Guerrero MD on 01/18/2021 9:21 PM PST Approved by: Criss Guerrero MD on 01/18/2021 9:21 PM PST Station ID: [id number]
== END 2021-01-18 22:35 | disposition home or self-care (01) ==
LOC: ED 20:15
DX: J44.9 Chronic obstructive pulmonary disease, unspecified (principal); J06.9 Acute upper respiratory infection, unspecified; B97.89 Other viral agents as the cause of diseases classified elsewhere; I10 Essential (primary) hypertension
CPT/HCPCS: 80053; 82803; 83690; 85025; 99283; 99284

== ENCOUNTER 2021-01-23 18:59 | Emergency (ER) | payer MEDICARE ==
[2021-01-23 19:50] LABS: BASOPHILS % (AUTO) 0.2 %; HCT - HEMATOCRIT 48.4 % (42.0-52.0); HGB - HEMOGLOBIN 16.4 g/dL (14.0-18.0); LYMPHOCYTES % (AUTO) 9.3 %; MEAN CORPUSCULAR HEMOGLOBIN 31.5 pg (27.0-31.0); MEAN CORPUSCULAR HGB CONC 33.9 g/dL (32.0-36.0); MEAN CORPUSCULAR VOLUME 92.9 fL (80.0-94.0); MEAN PLATELET VOLUME 10.3 fL (7.4-11.4); MONOCYTES # (AUTO) 0.4 10^3/uL (0.0-1.0); MONOCYTES % (AUTO) 4.1 %; NEUTROPHILS # (AUTO) 9.2 10^3/uL (1.5-6.6); NEUTROPHILS % (AUTO) 86.2 %; PLT - PLATELET COUNT 322 10^3/uL (130-450); RED BLOOD COUNT 5.21 10^6/uL (4.70-6.10); RED CELL DISTRIBUTION WIDTH 13.3 % (12.0-15.0); WHITE BLOOD COUNT 10.7 x10^3/uL (4.8-10.8)
[2021-01-23 20:03] LABS: ALBUMIN 4.4 g/dL (3.2-5.5); ALBUMIN/GLOBULIN RATIO 1.2 (1.0-2.2); CALCIUM 9.6 mg/dL (8.5-10.3); CREATININE 1.4 mg/dL (0.6-1.2); TOTAL PROTEIN 8.2 g/dL (6.7-8.2)
--- NOTE | 2021-01-23 20:05 | ED Physician Documentation ---
History of Present Illness - Stated complaint Stated Complaint: SOA - Chief complaint Chief Complaint: Resp - History obtained from History obtained from: Patient - History of Present Illness Timing: How many weeks ago (1) Pain level max: 0 Pain level now: 0 Improved by: Prednisone, albuterol Worsened by: Coughing - Additonal information Additional information: Patient is a 65-year-old male who presents to the emergency department complaining of shortness of breath for the past several days. He states that he started taking prednisone today. Takes DuoNeb nebulizer treatments 4 times a day and has an albuterol inhaler but he thinks this is . He was also seen here recently and had mild cardiomegaly on a portable chest x-ray, he is also concerned about heart failure. Recently diagnosed with sleep apnea and is on CPAP. His doctor recently placed him on Augmentin, hydrochlorothiazide and prednisone. No fevers. No chills. Patient states he feels very anxious tonight. Review of Systems Constitutional: denies: Fever, Chills Nose: reports: Rhinorrhea / runny nose, Congestion Throat: denies: Sore throat Cardiac: denies: Chest pain / pressure, Palpitations Respiratory: reports: Dyspnea, Cough, Wheezing GI: denies: Abdominal Pain, Nausea, Vomiting, Diarrhea Skin: denies: Rash Musculoskeletal: denies: Neck pain, Back pain PD PAST MEDICAL HISTORY - Past Medical History Past Medical History: Yes Cardiovascular: Hypertension Respiratory: Asthma, COPD, Pneumonia, Other Endocrine/Autoimmune: None GI: None : None HEENT: Chronic vision loss Psych: Anxiety Musculoskeletal: Osteoarthritis Derm: Eczema, Other - Past Surgical History Past Surgical History: No Derm: Other - Present Medications Home Medications: Ambulatory Orders Medication Instructions Recorded Confirmed Lisinopril 10 mg PO BID 05/09/13 01/23/21 Albuterol [Ventolin Hfa] 2 puffs INH Q4H PRN 07/05/14 01/23/21 ALPRAZolam [Alprazolam] 1 mg PO TID PRN 02/08/19 01/23/21 Budesonide/Formoterol Fumarate 2 puffs IH BID 02/08/19 01/23/21 [Symbicort 160-4.5 Mcg Inhaler] Ipratropium/Albuterol [Duoneb] 3 ml INH Q6H PRN 02/08/19 01/23/21 Naproxen Sodium [Aleve] 220 mg PO BID PRN 02/08/19 01/23/21 traMADol [Ultram] 0.5 tab PO DAILY PRN 02/08/19 01/23/21 Amox/Clav 875/125 [Augmentin] 1 each PO Q8HR 01/18/21 01/23/21 predniSONE [Deltasone] 40 mg PO QID 01/18/21 01/23/21 Albuterol Sulf [Ventolin Hfa 1 - 2 puffs INH Q4HR PRN #1 inhaler 01/23/21 Inhaler] hydroCHLOROthiazide [Hydrodiuril] 12.5 mg PO DAILY 01/23/21 01/23/21 - Allergies Allergies/Adverse Reactions: Allergies Allergy/AdvReac Type Severity Reaction Status Date / Time No Known Drug Allergies Allergy Verified 01/23/21 19:01 - Social History Does the pt smoke?: No Smoking Status: Never smoker Does the pt drink ETOH?: Yes Does the pt have substance abuse?: No - Immunizations Immunizations are current?: Yes - POLST Patient has POLST: No PD ED PE NORMAL - Vitals Vital signs reviewed: Yes - General General: Alert and oriented X 3, No acute distress, Well developed/nourished - HEENT HEENT: PERRL, Moist mucous membranes - Neck Neck: Supple, no meningeal sign - Cardiac Cardiac: RRR, Strong equal pulses - Respiratory Respiratory: No respiratory distress, Other (Mild wheezing bilaterally. No distress) - Abdomen Abdomen: Soft, Non tender, Non distended - Derm Derm: Warm and dry - Extremities Extremities: No edema - Neuro Neuro: Alert and oriented X 3 - Psych Psych: Normal mood, Normal affect Results - Vitals Vitals: Vital Signs - 24 hr 01/23/21 01/23/21 19:02 20:39 Temperature 36.3 C L 36.8 C Heart Rate 107 H 98 Respiratory 22 24 Rate Blood Pressure 155/103 H 139/98 H O2 Saturation 94 94 Oxygen O2 Source Room air - EKG (time done) 1939 Rate: Rate (enter#) (104) Rhythm: Sinus tachycardia, Other (PVC) QRS: LVH Ischemia: Q waves (aVF) - Labs Labs: Laboratory Tests 01/23/21 01/23/21 01/23/21 19:40 19:40 19:40 WBC 10.7 RBC 5.21 Hgb 16.4 Hct 48.4 MCV 92.9 MCH 31.5 H MCHC 33.9 RDW 13.3 Plt Count 322 MPV 10.3 Neut # (Auto) 9.2 H Lymph # (Auto) 1.0 L [place] # (Auto) 0.4 Eos # (Auto) 0.0 Baso # (Auto) 0.0 Absolute Nucleated RBC 0.00 Nucleated RBC % 0.0 Sodium 138 Potassium 4.0 Chloride 100 L Carbon Dioxide 25 Anion Gap 13.0 BUN 29 H Creatinine 1.4 H Estimated GFR (MDRD) 51 L Glucose 180 H Calcium 9.6 Total Bilirubin 1.0 AST 19 ALT 20 Alkaline Phosphatase 62 Troponin I High Sens 12.7 B-Natriuretic Peptide Total Protein 8.2 Albumin 4.4 Globulin 3.8 Albumin/Globulin Ratio 1.2 Lipase 32 01/23/21 19:40 WBC RBC Hgb Hct MCV MCH MCHC RDW Plt Count MPV Neut # (Auto) Lymph # (Auto) [place] # (Auto) Eos # (Auto) Baso # (Auto) Absolute Nucleated RBC Nucleated RBC % Sodium Potassium Chloride Carbon Dioxide Anion Gap BUN Creatinine Estimated GFR (MDRD) Glucose Calcium Total Bilirubin AST ALT Alkaline Phosphatase Troponin I High Sens B-Natriuretic Peptide 142 H Total Protein Albumin Globulin Albumin/Globulin Ratio Lipase - Rads (name of study) cxr Radiology: Final report received, EMP read contemporaneously, See rad report (No acute disease) PD MEDICAL DECISION MAKING - ED course Complexity details: reviewed old records, reviewed results, considered differential, d/w patient ED course: Patient declines any breathing treatments here tonight. Declines a breathing treatment. His BNP is minimally elevated. This could be due to his illness, he will follow up with his doctor for further care and likely echocardiogram. Recommend he use his CPAP regularly as well. Will refill his albuterol inhaler. Recommend he continue the steroids and CPAP at home. Patient is well- appearing, nontoxic. Afebrile. No hypoxia. Patient counseled regarding signs and symptoms for which I believe and urgent re-evaluation would be necessary. Patient with good understanding of and agreement to plan and is comfortable going home at this time This document was made in part using voice recognition software. While efforts are made to proofread this document, sound alike and grammatical errors may occur. Departure - Departure Disposition: Home, Self Care Clinical Impression: Asthma Qualifiers: Asthma severity: unspecified severity Asthma persistence: unspecified Asthma c omplication type: with acute exacerbation Qualified Code(s): J45.901 - Unspecified asthma with (acute) exacerbation Condition: Good Instructions: ED Reactive Airway Disease Follow-Up: Cande Calderon MD [Primary Care Provider] - Within 1 week Prescriptions: Albuterol Sulf [Ventolin Hfa Inhaler] 1 - 2 puffs INH Q4HR PRN #1 inhaler PRN Reason: Shortness Of Air/Wheezing Comments: Please follow-up with your doctor for further care. Your BNP is minimally elevated, this could be due to your illness. Your doctor may want to perform an echocardiogram as we discussed. Please continue your prednisone, breathing treatments at home. Return if you worsen A new inhaler was sent to [facility] in [place] for you Discharge Date/Time: 01/23/21 20:42
--- NOTE | 2021-01-23 20:20 | XRAY Report ---
PROCEDURE: Chest 1 View X-Ray INDICATIONS: Chest Pain TECHNIQUE: One view of the chest was acquired. COMPARISON: 01/18/2021, 10/17/2019 FINDINGS: Surgical changes and devices: None. Lungs and pleura: The right lung apex is partially obscured by patient's neck soft tissues. The visu alized lungs are clear. No pleural effusions or definite pneumothorax. Mediastinum: Mediastinal contours appear normal. Heart size is mildly enlarged. Bones and chest wall: No suspicious bony lesions. Overlying soft tissues appear unremarkable. IMPRESSION: 1. No definite acute cardiopulmonary disease. Reviewed by: Jc Melendez MD on 01/23/2021 8:[address] [facility] Approved by: Jc Melendez MD on 01/23/2021 8:[address] [facility] Station ID: [id number]
[2021-01-23 20:41] VITALS: BP 139/98
== END 2021-01-23 20:42 | disposition home or self-care (01) ==
LOC: ED 18:59
DX: J45.901 Unspecified asthma with (acute) exacerbation (principal); G47.30 Sleep apnea, unspecified; I49.3 Ventricular premature depolarization; I10 Essential (primary) hypertension
CPT/HCPCS: 36415; 80053; 83690; 83880; 84484; 85025; 93005; 99284

== ENCOUNTER 2021-03-20 16:21 | Emergency (ER) | payer MEDICARE ==
[2021-03-20] MEDS ORDERED: DEXAMETHASONE 10 MG/ML VIAL IV STA (16:55)
[2021-03-20] MEDS ORDERED: LEVALBUTEROL 1.25 MG/3 ML NEB INH PRN (16:57)
[2021-03-20] MEDS ORDERED: LEVALBUTEROL 1.25 MG/3 ML NEB INH STA (16:58)
[2021-03-20] MEDS ORDERED: LEVALBUTEROL 1.25 MG/3 ML NEB INH ONE (16:59)
[2021-03-20 17:09] LABS: BASOPHILS % (AUTO) 0.2 %; EOSINOPHILS # (AUTO) 0.3 10^3/uL (0.0-0.7); EOSINOPHILS % (AUTO) 2.6 %; HCT - HEMATOCRIT 40.7 % (42.0-52.0); LYMPHOCYTES # (AUTO) 0.1 10^3/uL (1.5-3.5); LYMPHOCYTES % (AUTO) 1.3 %; MEAN CORPUSCULAR HGB CONC 34.4 g/dL (32.0-36.0); MEAN CORPUSCULAR VOLUME 93.1 fL (80.0-94.0); MEAN PLATELET VOLUME 9.8 fL (7.4-11.4); MONOCYTES # (AUTO) 0.3 10^3/uL (0.0-1.0); MONOCYTES % (AUTO) 3.4 %; NEUTROPHILS # (AUTO) 9.2 10^3/uL (1.5-6.6); NEUTROPHILS % (AUTO) 92.2 %; PLT - PLATELET COUNT 195 10^3/uL (130-450); RED BLOOD COUNT 4.37 10^6/uL (4.70-6.10); RED CELL DISTRIBUTION WIDTH 13.5 % (12.0-15.0)
--- NOTE | 2021-03-20 17:11 | ED Physician Documentation ---
History of Present Illness - Stated complaint Stated Complaint: SOA - Chief complaint Chief Complaint: Resp - History obtained from History obtained from: Patient - Additonal information Additional information: Patient comes emergency department chief complaint of shortness of breath. He states that he has a longstanding history of asthma and that he had gone to sit outside with his in the sunshine, when he suddenly began to feel short of breath and anxious. He states His nebulizer machine was broken so he could not use it, but he took 3 doses of his Xanax. This seemed to help somewhat but he was still short of breath. On arrival, he was found to be satting 85% on room air in triage. The patient denies smoking. He states he has had a cough for about the last week productive of some yellow sputum. Review of Systems Ten Systems: 10 systems reviewed and negative Constitutional: reports: Reviewed and negative Eyes: reports: Reviewed and negative Ears: reports: Reviewed and negative Nose: reports: Reviewed and negative Throat: reports: Reviewed and negative Cardiac: reports: Reviewed and negative Respiratory: reports: Dyspnea GI: reports: Reviewed and negative : reports: Reviewed and negative Skin: reports: Reviewed and negative Musculoskeletal: reports: Reviewed and negative Neurologic: reports: Reviewed and negative Psychiatric: reports: Reviewed and negative Endocrine: reports: Reviewed and negative Immunocompromised: reports: Reviewed and negative PD PAST MEDICAL HISTORY - Past Medical History Cardiovascular: Hypertension Respiratory: Asthma, COPD, Pneumonia, Other Endocrine/Autoimmune: None GI: None : None HEENT: Chronic vision loss Psych: Anxiety Musculoskeletal: Osteoarthritis Derm: Eczema, Other - Past Surgical History Past Surgical History: No Derm: Other - Present Medications Home Medications: Ambulatory Orders Medication Instructions Recorded Confirmed Lisinopril 10 mg PO BID 05/09/13 01/23/21 Albuterol [Ventolin Hfa] 2 puffs INH Q4H PRN 07/05/14 01/23/21 ALPRAZolam [Alprazolam] 1 mg PO TID PRN 02/08/19 01/23/21 Budesonide/Formoterol Fumarate 2 puffs IH BID 02/08/19 01/23/21 [Symbicort 160-4.5 Mcg Inhaler] Ipratropium/Albuterol [Duoneb] 3 ml INH Q6H PRN 02/08/19 01/23/21 Naproxen Sodium [Aleve] 220 mg PO BID PRN 02/08/19 01/23/21 traMADol [Ultram] 0.5 tab PO DAILY PRN 02/08/19 01/23/21 Amox/Clav 875/125 [Augmentin] 1 each PO Q8HR 01/18/21 01/23/21 predniSONE [Deltasone] 40 mg PO QID 01/18/21 01/23/21 Albuterol Sulf [Ventolin Hfa 1 - 2 puffs INH Q4HR PRN #1 inhaler 01/23/21 Inhaler] hydroCHLOROthiazide [Hydrodiuril] 12.5 mg PO DAILY 01/23/21 01/23/21 Azithromycin [Zithromax] 0 mg PO DAILY #6 tablet 03/20/21 predniSONE [Deltasone] 60 mg PO DAILY 5 Days #15 tablet 03/20/21 - Allergies Allergies/Adverse Reactions: Allergies Allergy/AdvReac Type Severity Reaction Status Date / Time No Known Drug Allergies Allergy Verified 01/23/21 19:01 - Social History Does the pt smoke?: No Smoking Status: Never smoker Does the pt drink ETOH?: Yes Does the pt have substance abuse?: No - Immunizations Immunizations are current?: Yes - POLST Patient has POLST: No PD ED PE NORMAL - Vitals Vital signs reviewed: Yes - General General: Alert and oriented X 3, Well developed/nourished, Other (Mild resp distress, but talking ) - HEENT HEENT: PERRL - Cardiac Cardiac: RRR, No murmur, Strong equal pulses - Respiratory Respiratory: Other (tight respirations, moderately labored, but speaking in full sentences. 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, Normal speech - Psych Psych: Normal mood, Normal affect Results - Vitals Vitals: Vital Signs - 24 hr 03/20/21 03/20/21 03/20/21 16:33 17:00 17:11 Temperature 37.3 C Heart Rate 116 H 120 H 117 H Respiratory 20 26 H 24 Rate Blood Pressure 130/92 H 157/102 H O2 Saturation 85 L 96 03/20/21 03/20/21 03/20/21 18:04 18:19 18:30 Temperature Heart Rate 103 H 100 Respiratory 24 22 Rate Blood Pressure 120/86 H 120/86 H O2 Saturation 88 L 93 95 03/20/21 19:27 Temperature Heart Rate 94 Respiratory 15 Rate Blood Pressure 125/81 H O2 Saturation 93 Oxygen O2 Source Room air - Labs Labs: Laboratory Tests 03/20/21 03/20/21 16:59 16:59 WBC 10.0 RBC 4.37 L Hgb 14.0 Hct 40.7 L MCV 93.1 MCH 32.0 H MCHC 34.4 RDW 13.5 Plt Count 195 MPV 9.8 Neut # (Auto) 9.2 H Lymph # (Auto) 0.1 L [place] # (Auto) 0.3 Eos # (Auto) 0.3 Baso # (Auto) 0.0 Absolute Nucleated RBC 0.00 Nucleated RBC % 0.0 Sodium 138 Potassium 3.8 Chloride 101 Carbon Dioxide 25 Anion Gap 12.0 BUN 19 Creatinine 1.1 Estimated GFR (MDRD) 67 L Glucose 89 Calcium 8.8 Total Bilirubin 1.3 H AST 23 ALT 20 Alkaline Phosphatase 59 Total Protein 6.9 Albumin 3.7 Globulin 3.2 Albumin/Globulin Ratio 1.2 Lipase 35 - Rads (name of study) CXR Radiology: Final report received, EMP read indepedently, See rad report (Poss RUL infiltrate) PD MEDICAL DECISION MAKING - ED course Complexity details: reviewed old records, reviewed results, re-evaluated patient, considered differential, d/w patient ED course: Pt's O2 sat on RA was 85% in triage, and he was immediately started on a Xopenex neb (x2). He was also given Decadron 20 mg IV. He reported improvement after Xopenex, though still felt somewhat tight; however, pt was intent on going home, stating he's been worse than this before and done fine at home. His neb machine has been fixed by respiratory, and I have given him a prescription for prednisone, as well as Zithromax for his possible pneumonia. He has been given a dose of Rocephin in the ED, as well. We have discussed the usual indications for return. Departure - Departure Disposition: Home, Self Care Clinical Impression: Asthma exacerbation Qualifiers: Asthma severity: mild Asthma persistence: intermittent Qualified Code(s): J45.21 - Mild intermittent asthma with (acute) exacerbation Pneumonia Qualifiers: Pneumonia type: due to unspecified organism Laterality: right Lung location: upper lobe of lung Qualified Code(s): J18.9 - Pneumonia, unspecified organism Condition: Stable Instructions: Asthma Dc, ED Pneumonia Adult Prescriptions: predniSONE [Deltasone] 60 mg PO DAILY 5 Days #15 tablet Azithromycin [Zithromax] 0 mg PO DAILY #6 tablet Comments: Your prescriptions have been electronically transmitted to [facility] in [place]. Your x-ray shows a probable small area of pneumonia of the right upper lung. Please take the antibiotics for this. You should start your nebulizer treatment as soon as you get home, and may take these every 4 hours. Please also take the prednisone once a day. Please follow-up with your primary care physician and return to the emergency department if your symptoms significantly worsen. Discharge Date/Time: 03/20/21 19:28
[2021-03-20 17:19] LABS: ALBUMIN 3.7 g/dL (3.2-5.5); ALBUMIN/GLOBULIN RATIO 1.2 (1.0-2.2); BILIRUBIN,TOTAL 1.3 mg/dL (0.2-1.0); CALCIUM 8.8 mg/dL (8.5-10.3); CREATININE 1.1 mg/dL (0.6-1.2); POTASSIUM 3.8 mmol/L (3.5-5.0); TOTAL PROTEIN 6.9 g/dL (6.7-8.2)
--- NOTE | 2021-03-20 17:30 | XRAY Report ---
PROCEDURE: Chest 1 View X-Ray INDICATIONS: chest pain TECHNIQUE: One view of the chest was acquired. COMPARISON: 01/23/2021, 01/18/2021. FINDINGS: Surgical changes and devices: None. Lungs and pleura: No pleural effusions or pneumothorax. Ill-defined airspace opacity in lateral aspe ct of right midlung field is seen concerning for right upper lobe infiltrate. Mild pulmonary vascular congestion is also seen. Mediastinum: Mediastinal contours appear normal. Heart size is normal. Bones and chest wall: No suspicious bony lesions. Overlying soft tissues appear unremarkable. IMPRESSION: Finding is concerning for developing right upper lobe infiltrate. No pleural effusion or pneumothorax . Reviewed by: Johnathan Flor MD on 03/20/2021 5:28 PM PST Approved by: Johnathan Flor MD on 03/20/2021 5:28 PM PST Station ID: [id number]
[2021-03-20] MEDS ORDERED: cefTRIAXone 2 GM in SODIUM CHLORIDE 0.9% MINIBAG 100 ML IV STA (17:40)
[2021-03-20] MEDS ORDERED: AZITHROMYCIN 250 MG TABLET PO STA (17:40)
[2021-03-20 19:28] VITALS: BP 125/81
== END 2021-03-20 19:28 | disposition home or self-care (01) ==
LOC: ED 16:21
DX: J45.21 Mild intermittent asthma with (acute) exacerbation (principal); J18.9 Pneumonia, unspecified organism; I10 Essential (primary) hypertension
CPT/HCPCS: 36415; 71045; 80053; 83690; 85025; 94640; 96374; 99284; A9270